=== PATIENT | male | born 1975 | race Caucasian/White ===

== ENCOUNTER 2020-08-03 10:41 | Emergency (ER) | payer SELFPAY ==
[~2020-08-03] VITALS: Ht 177.8 cm; Wt 77.1 kg
[2020-08-03 13:12] VITALS: BP 125/82
== END 2020-08-03 13:19 | disposition home or self-care (01) ==
LOC: ER 10:41
DX: S82.842D Displaced bimalleolar fracture of left lower leg, subsequent encounter for closed fracture with routine healing (principal); S92.342D Displaced fracture of fourth metatarsal bone, left foot, subsequent encounter for fracture with routine healing; X58.XXXD Exposure to other specified factors, subsequent encounter
CPT/HCPCS: 29515; 73610; 73630